=== PATIENT | female | born 1985 | race Caucasian/White ===

== ENCOUNTER 2017-07-20 19:06 | Emergency (ER) | payer OTHER ==
[~2017-07-20] VITALS: Ht 149.9 cm; Wt 54.4 kg
[~2017-07-20 19:06] MED LIST: CLARITIN10 MG PO; KEFLEX500 MG PO; LIORESAL 10 MG10 MG PO; TRAMADOL 50 MG50 MG PO
[2017-07-20] MEDS ORDERED: ACCUNEB SO1.25 MG/1 INH (19:24)
[2017-07-20] MEDS ORDERED: NAPROSYN500 MG PO (20:52)
[2017-07-20] MEDS ORDERED: HYDROCODONE-AP1 EAC6 PO (20:52)
[2017-07-20 21:51] VITALS: BP 102/62
== END 2017-07-20 21:52 | disposition home or self-care (01) ==
LOC: M.ERS 19:06
DX: M25.562 Pain in left knee (principal); R51 Headache; J45.909 Unspecified asthma, uncomplicated; Z88.8 Allergy status to other drugs, medicaments and biological substances; V49.9XXA Car occupant (driver) (passenger) injured in unspecified traffic accident, initial encounter; Y93.89 Activity, other specified; Y92.89 Other specified places as the place of occurrence of the external cause; Y99.8 Other external cause status

== ENCOUNTER 2017-07-25 15:24 | Emergency (ER) | payer OTHER ==
[~2017-07-25] VITALS: Ht 149.9 cm; Wt 54.4 kg
[~2017-07-25 15:24] MED LIST changes: +ACCUNEB SO1.25 MG/1 INH; +HYDROCODONE-AP1 EAC6 PO; +NAPROSYN500 MG PO
[2017-07-25 17:47] VITALS: BP 117/86
== END 2017-07-25 17:49 | disposition home or self-care (01) ==
LOC: M.ERS 15:24
DX: S80.12XD Contusion of left lower leg, subsequent encounter (principal); J45.909 Unspecified asthma, uncomplicated; Z88.8 Allergy status to other drugs, medicaments and biological substances; X58.XXXD Exposure to other specified factors, subsequent encounter

== ENCOUNTER 2017-12-24 18:36 | Emergency (ER) | payer OTHER ==
[~2017-12-24] VITALS: Ht 149.9 cm; Wt 54.4 kg
[2017-12-24] MEDS ORDERED: XYZBAC TABLET1 EACH PO (18:48)
[2017-12-24] MEDS ORDERED: TRUVADA1 EAC1 PO (19:24)
[2017-12-24] MEDS ORDERED: ISENTRESS400 MG PO (19:24)
[2017-12-24 19:25] LABS: ABSOLUTE BASOPHILS 0.1 thou/uL (0.0-0.2); ABSOLUTE EOSINOPHILS 0.2 thou/uL (0.0-0.7); ABSOLUTE LYMPHOCYTES 2.1 thou/uL (0.8-5.3); ABSOLUTE MONOCYTES 0.4 thou/uL (0.0-1.2); ABSOLUTE NEUTROPHILS 2.8 thou/uL (1.6-8.1); BASOPHILS 1.2 %; HEMATOCRIT 38.2 % (37.0-47.0); HEMOGLOBIN 13.3 gm/dL (12.0-15.0); LYMPHOCYTES 38.3 %; MCH 29.5 pg (26.0-34.0); MCHC 34.7 g/dL (28.0-37.0); MCV 84.8 fL (80.0-100.0); MPV 8.2 fl. (7.2-11.1); NUCLEATED RBCS 0 /100WBC; PLATELET COUNT* 218 thou/uL (150-400); POLYS 50.5 %; RDW-CV 13.2 % (10.5-14.5); WBC 5.5 thou/uL (4.0-11.0)
[2017-12-24 19:31] LABS: CALCIUM 8.9 mg/dL (8.5-10.1); CREATININE 0.6 mg/dL (0.6-1.3); POTASSIUM 3.6 mmol/L (3.5-5.1)
[2017-12-24 19:36] LABS: ALBUMIN 4.4 g/dL (3.4-5.0); TOTAL BILIRUBIN 0.4 mg/dL (<0.1-1.0)
[2017-12-24 20:11] VITALS: BP 118/71
[2017-12-25 16:09] LABS: HEPATITIS B SURFACE AG Negative (Negative)
== END 2017-12-24 20:11 | disposition home or self-care (01) ==
LOC: M.ERS 18:36
PROVIDERS: Nurse Practitioner Family
DX: S61.032A Puncture wound without foreign body of left thumb without damage to nail, initial encounter (principal); J45.909 Unspecified asthma, uncomplicated; Z98.890 Other specified postprocedural states; Z91.041 Radiographic dye allergy status; Z88.8 Allergy status to other drugs, medicaments and biological substances; W46.0XXA Contact with hypodermic needle, initial encounter; Y93.89 Activity, other specified; Y92.89 Other specified places as the place of occurrence of the external cause; Y99.8 Other external cause status

== ENCOUNTER 2018-07-10 13:33 | Emergency (ER) | payer OTHER ==
[~2018-07-10] VITALS: Ht 149.9 cm; Wt 54.4 kg
[~2018-07-10 13:33] MED LIST changes: +ISENTRESS400 MG PO; +TRUVADA1 EAC1 PO; +XYZBAC TABLET1 EACH PO
[2018-07-10] MEDS ORDERED: MUCINEX600 MG PO (13:47)
[2018-07-10] MEDS ORDERED: IBUPROFEN 200200 M1 PO (13:47)
[2018-07-10] MEDS ORDERED: OSELB75 PO (13:47)
[2018-07-10] MEDS ORDERED: TESSALON PERLE100 MG PO (13:47)
[2018-07-10 14:09] VITALS: BP 118/81
== END 2018-07-10 14:09 | disposition home or self-care (01) ==
LOC: M.ERS 13:33
DX: J11.1 Influenza due to unidentified influenza virus with other respiratory manifestations (principal); J45.909 Unspecified asthma, uncomplicated; Z98.890 Other specified postprocedural states; Z91.041 Radiographic dye allergy status; Z88.6 Allergy status to analgesic agent; Z88.8 Allergy status to other drugs, medicaments and biological substances

== ENCOUNTER 2018-07-12 08:45 | Inpatient (IN) | payer OTHER ==
[2018-07-12] VITALS (19 sets, daily range): BP systolic 83–117; BP diastolic 48–68
[~2018-07-12] VITALS: Ht 149.9 cm; Wt 63.0 kg
[~2018-07-12 08:45] MED LIST changes: +IBUPROFEN 200200 M1 PO; +MUCINEX600 MG PO; +OSELB75 PO; +TESSALON PERLE100 MG PO
[2018-07-12] MEDS ORDERED: CENTRUM SILVER1 EAC4 PO (08:58)
[2018-07-12] MEDS ORDERED: 24HR ALLERGY REL5 MG PO (08:58)
[2018-07-12] MEDS ORDERED: DIGESTIVE PROB250 MG PO (08:59)
[2018-07-12 09:12] LABS: ABSOLUTE LYMPHOCYTES 0.5 thou/uL (0.8-5.3); ABSOLUTE MONOCYTES 0.3 thou/uL (0.0-1.2); ABSOLUTE NEUTROPHILS 4.1 thou/uL (1.6-8.1); BASOPHILS 0.6 %; HEMATOCRIT 37.1 % (37.0-47.0); HEMOGLOBIN 12.9 gm/dL (12.0-15.0); LYMPHOCYTES 9.6 %; MCH 29.7 pg (26.0-34.0); MCHC 34.9 g/dL (28.0-37.0); MCV 85.1 fL (80.0-100.0); MPV 7.8 fl. (7.2-11.1); NUCLEATED RBCS 0 /100WBC; PLATELET COUNT* 184 thou/uL (150-400); POLYS 83.8 %; RBC 4.36 mil/uL (4.20-5.00); RDW-CV 12.9 % (10.5-14.5); WBC 4.9 thou/uL (4.0-11.0)
[2018-07-12 09:17] LABS: BE -3.4 mmol/L (-2 to +3); PCO2 31.3 mmHg (35.0-45.0); PO2 67.2 mmHg (75.0-100.0); pH 7.424 (7.340-7.450)
[2018-07-12 09:29] LABS: CREATININE 1.1 mg/dL (0.6-1.3); POTASSIUM 3.2 mmol/L (3.5-5.1)
[2018-07-12 09:34] LABS: ALBUMIN 3.7 g/dL (3.4-5.0); TOTAL BILIRUBIN 0.3 mg/dL (<0.1-1.0); TOTAL PROTEIN 8.4 g/dL (6.4-8.2)
[2018-07-12 10:03] LABS: URINE BLOOD 1+ (Negative); URINE CLARITY CLEAR; URINE COLOR DARK YELLOW; URINE GLUCOSE-RANDOM NEGATIVE (Negative); URINE LEUKOCYTES-REFLEX NEGATIVE (Negative); URINE NITRITE-REFLEX NEGATIVE (Negative); URINE PROTEIN 2+ (Negative); URINE SPECIFIC GRAVITY >= 1.030 (1.005-1.030); URINE UROBILINOGEN 0.2 E.U./dl (0.2-1.0)
[2018-07-12 10:12] LABS: URINE BILIRUBIN 2+ (Negative); URINE KETONES 3+ (Negative)
[2018-07-12 10:14] LABS: ICTOTEST (BILI CONFIRMATORY) Negative (Negative)
[2018-07-12 10:34] LABS: SQUAMOUS 4-10 Moderate /LPF (0-3); URINE WBC-REFLEX 6-15 Few /HPF (0-5); WBC CLUMPS Few (None Seen)
[2018-07-12 10:35] LABS: URINE RBC 0-2 Rare /HPF (0-2)
[2018-07-12 10:36] LABS: HYALINE CASTS 0-3 Few /LPF (None Seen); MUCUS >6 Heavy strn/LPF (None Seen)
[2018-07-12 10:39] LABS: CRYSTALS None Seen /LPF (None Seen); TRANSITIONAL EPITHEL CELL 0-3 Few /LPF (None Seen); WBC CASTS 0-3 /LPF
[2018-07-12 13:32] LABS: HCO3 19.7 mmol/L (22.0-26.0); PCO2 VENOUS 44.3 mmHg (41.0-51.0); PO2 VENOUS < 39.5 mmHg (35.0-45.0)
--- NOTE | 2018-07-12 15:40 | EKG ---
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
[2018-07-13] VITALS (19 sets, daily range): BP systolic 81–110; BP diastolic 52–71
[2018-07-13 04:15] LABS: HEMATOCRIT 31.3 % (37.0-47.0); MCH 29.5 pg (26.0-34.0); MCHC 34.4 g/dL (28.0-37.0); MCV 85.8 fL (80.0-100.0); MPV 7.8 fl. (7.2-11.1); RBC 3.65 mil/uL (4.20-5.00); RDW-CV 13.2 % (10.5-14.5); WBC 2.5 thou/uL (4.0-11.0)
[2018-07-13 04:37] LABS: ALBUMIN 2.6 g/dL (3.4-5.0); CREATININE 0.9 mg/dL (0.6-1.3); MAGNESIUM 1.7 mg/dL (1.8-2.4); POTASSIUM 3.9 mmol/L (3.5-5.1); TOTAL BILIRUBIN 0.1 mg/dL (<0.1-1.0); TOTAL PROTEIN 6.4 g/dL (6.4-8.2)
[2018-07-13 04:46] LABS: HEMOGLOBIN 10.8 gm/dL (12.0-15.0)
--- NOTE | 2018-07-13 06:30 | NUR ---
PATIENT PROGRESSING TOWARDS GOALS. NO ACUTE HEMODYNAMIC CHANGES. PT BP MAP REMAINED >65. REMAINS OFF PRESSORS. REPLACING ELECTROLYTES. PT STATED "I FEEL SO MUCH BETTER, I CAN BREATH BETTER". SHE COMPLAINED OF MILD CHEST DISCOMFORT HAD A COUPLE COUGHING SPASMS MEDICATION GIVEN AND SUBSIDED. PT CONTINUES WITH CVP RUNNING WNL. GOES TO BEDSIDE COMMODE HAS DIARRHEA. DENIES NAUSEA. PT WAS ABLE TO GET FIVE HOURS OF SLEEP. NO CURRENT CONCERNS AT THIS TIME. WILL CONTINUE TO MONITOR.
--- NOTE | 2018-07-13 12:46 | CON ---
[address] [address] CONSULTATION Name: RACHAEL VAUGHAN Room: [address] IN M.R.#: [id number] Admission: 07/12/18 Attend Phys: Jayce Barksdale MD Discharge: Date of : 83 Report #: [id number] THIS REPORT FOR: //name// CC: FAM unknown Jayce Barksdale [facility] DATE OF SERVICE: 07/12/2018 INFECTIOUS DISEASE CONSULTATION ATTENDING PHYSICIAN: Jayce Barksdale MD REASON FOR EVALUATION: Influenza B complicated by secondary bacterial pneumonitis. HISTORY OF PRESENT ILLNESS: Chart reviewed, patient examined. This is a 32-year-old, without significant medical history, who was noted to be ill roughly a week ago and developed febrile illness, was diagnosed with influenza B, was treated with oseltamivir and over the course of the last 24-48 hours prior to her admission, had worsening fevers, increasing cough and nonproductive progressive dyspnea. She was evaluated in the Emergency Room on 07/10/2018, felt to have ongoing issues with the influenza; however, returned at the recommendation of her primary care. Chest x-ray at this time showed right perihilar infiltrate, so was borderline hypoxemic. Hemodynamics were somewhat labile. She has received 4 liters of fluid. The pressure is still in the 90 systolic. She is not encephalopathic. She has noted intractable nausea with repeated emesis and no p.o. intake including her medicines for the last 24 hours. She is empirically started on therapy with vancomycin, azithromycin and ceftriaxone. ALLERGIES: IODINE, DIPHENHYDRAMINE. MEDICATIONS: Include azithromycin, vancomycin, methylprednisolone, pantoprazole. PAST MEDICAL HISTORY: History of asthma, 3 C-sections. SOCIAL HISTORY: Nonsmoker, no ethanol, no illicit drug use. FAMILY HISTORY: Noncontributory. REVIEW OF SYSTEMS: A 10-point review of system otherwise unremarkable except as noted in history of present illness. PHYSICAL EXAMINATION: [place] [id number] CONSULTATION Name: RACHAEL VAUGHAN Room: [address] IN [facility]#: [id number] Admission: 07/12/18 Attend Phys: Jayce Barksdale MD Discharge: Date of : 83 Report #: [id number] GENERAL: She appears ill. Borderline toxic. She is generally lucid. VITAL SIGNS: T-max 104, pulse 78, respirations 19, blood pressure 95/55. SKIN: Warm, dry. HEENT: Extraocular muscles intact. Lips are dry. NECK: Supple. LUNGS: Few scattered coarse breath sounds on the right. She is borderline tachypneic. HEART: Regular. I do not appreciate any murmur. ABDOMEN: Soft, nontender, nondistended. EXTREMITIES: No cyanosis. GENITOURINARY: Deferred. RECTAL: Deferred. LABORATORY DATA: CBC: White count of 4.9, H and H 12.9 and 37.1, platelets 184. ABGs: pH 7.424, pCO2 of 31.3 and pO2 of 67.2. Electrolytes: Sodium 139, potassium 3.2, chloride 100, bicarbonate is 24, anion gap of 15, BUN and creatinine 19 and 1.1, glucose of 86. LFTs unremarkable. Albumin of 3.7, total protein of 8.4. Chest x-ray, right perihilar infiltrate, right mid lung and basilar infiltrate and atelectasis. Lactic acid 0.7. Urinalysis, few wbc's clumps, white cells 6-15. ASSESSMENT: Influenza B secondary to complication of bacterial pneumonitis, also may well have a complicated urinary tract infection. We will continue combination therapy. For the parenteral regimen, we will adjust treatment per combination. At this point, she is somewhat labile. Continue fluid resuscitation as well as supplemental oxygen as required. Symptomatic treatment. <ELECTRONICALLY SIGNED> By: Neri Grissom MD 07/13/18 1246 1714 [id number] Grissom MD /nt
--- NOTE | 2018-07-13 17:56 | NUR ---
PT CARE ASSUMED AFTER REPORT. ASSESSMENTS COMPLETE. SR ON MONITOR. IVF INFUSING. PT UP WITH STAND BY ASSIST TO BSC. PRN PAIN MEDICATION GIVEN PER ORDERS. DROPLET PRECAUTIONS IN PLACE. PROGRESSING TOWARDS GOALS.
[2018-07-14] VITALS (12 sets, daily range): BP systolic 95–115; BP diastolic 60–79
--- NOTE | 2018-07-14 06:46 | NUR ---
VSS, SEE ASSESSMENT. PT DENIES PAIN EXCEPT DURING COUGHING, NO PAIN WHEN NOT COUGHING. DROPLET PRECAUTIONS MAINTAINED. PT SLEPT WELL AFTER PRN MELATONIN. CALL LIGHT WITHIN REACH.
[2018-07-14 08:32] LABS: CALCIUM 7.3 mg/dL (8.5-10.1); CREATININE 0.6 mg/dL (0.6-1.3); MAGNESIUM 2.2 mg/dL (1.8-2.4); POTASSIUM 3.7 mmol/L (3.5-5.1)
--- NOTE | 2018-07-14 12:44 | NUR ---
PATIENT REMAINS A&O X 4, PLEASANT AND COOPERATIVE WITH CARES. DENIES PAIN. PATIENT HAS NON-PRODUCTIVE COUGH NOTED, SOA NOTED WITH EXCERTION. O2@2L PER NC UP TO COMMODE X 2, LOOSE BM NOTED, ADEQUATE UO. PATIENT TO TRANSFER TO ROOM 211. REPORT GIVEN TO GUSTAVO DAUGHERTY . NO FUTHER CONCERNS AT THIS TIME. WILL CONTINUE TO MONITOR AND CARE PER PLAN OF CARE.
--- NOTE | 2018-07-14 13:25 | NUR ---
icu tx to rm 211 telephone report given patient to via wc good condition personal belongings moved with patient oriented to rm and call light denies pain
--- NOTE | 2018-07-15 04:17 | NUR ---
ASSUMED PT CARE AT 191. NURSING ASSESSMENT COMPLETED AT START OF SHIFT. PT MED SURG STATUS. CONTINUES ON DROPLET ISO PRECAUTIONS. PRN PAIN MEDICATION ADMINISTERED X1 THIS SHIFT FOR C/O GENERALIZED PAIN. SEE EMAR FOR DOCUMENTATION HOURLY ROUNDING COMPLETED, FALL PRECAUTIONS IN PLACE.
[2018-07-15 05:35] LABS: HEMATOCRIT 28.2 % (37.0-47.0); HEMOGLOBIN 9.9 gm/dL (12.0-15.0); MCV 85.7 fL (80.0-100.0); MPV 8.4 fl. (7.2-11.1); RBC 3.29 mil/uL (4.20-5.00); RDW-CV 13.4 % (10.5-14.5); WBC 7.2 thou/uL (4.0-11.0)
[2018-07-15 06:00] LABS: ALBUMIN 2.6 g/dL (3.4-5.0); CALCIUM 7.6 mg/dL (8.5-10.1); CREATININE 0.7 mg/dL (0.6-1.3); MAGNESIUM 2.5 mg/dL (1.8-2.4); POTASSIUM 3.5 mmol/L (3.5-5.1); TOTAL BILIRUBIN 0.2 mg/dL (<0.1-1.0); TOTAL PROTEIN 5.2 g/dL (6.4-8.2)
[2018-07-15 08:00] VITALS: BP 127/83
[2018-07-15 16:00] VITALS: BP 114/82
--- NOTE | 2018-07-15 18:07 | NUR ---
PT UP IN ROOM WITH STEADY GAIT. OCASSIONAL COUGH BUT IMPROVED THIS EVENING. VOIDING WELL AFTER LASIX. TOLERATING PO WELL. REMAINS ON O2 @2L NC
[2018-07-15 20:00] VITALS: BP 103/64
[2018-07-16] VITALS: BP 108/62
--- NOTE | 2018-07-16 04:27 | NUR ---
ASSUMED PT CARE AT 1915. PT MED SURG STATUS. VOICED NO CONCERNS THIS SHIFT. CONTINUES ON 1L O2 VIA NC THIS SHIFT. HOURLY ROUNDING COMPLETED, CALL LIGHT REMAINS WITHIN REACH. PT SLOWLY PROGRESSING TOWARDS GOALS.
[2018-07-16 05:36] LABS: HEMATOCRIT 28.7 % (37.0-47.0); HEMOGLOBIN 10.3 gm/dL (12.0-15.0); MCH 30.1 pg (26.0-34.0); MCHC 35.8 g/dL (28.0-37.0); MCV 83.9 fL (80.0-100.0); MPV 8.3 fl. (7.2-11.1); RBC 3.42 mil/uL (4.20-5.00); RDW-CV 13.3 % (10.5-14.5); WBC 5.7 thou/uL (4.0-11.0)
[2018-07-16 05:48] LABS: CALCIUM 7.8 mg/dL (8.5-10.1); CREATININE 0.7 mg/dL (0.6-1.3); MAGNESIUM 2.3 mg/dL (1.8-2.4); POTASSIUM 3.1 mmol/L (3.5-5.1)
[2018-07-16 08:00] VITALS: BP 130/88
[2018-07-16 15:50] VITALS: BP 124/84
--- NOTE | 2018-07-16 18:05 | NUR ---
PT CARE ASSUMED AFTER REPORT. ASSESSMENT COMPLETE. UP AD LUIS ANGEL WITH STEADY GAIT. O2 1L NC. PT REPORTS THAT SHE CONTINUES TO FEEL WEAK. REPORTS GEMERALIZED ACHING. SLOW TO PROGRESS TOWARDS GOALS.
[2018-07-16 20:00] VITALS: BP 113/75
[2018-07-17] VITALS: BP 115/70
--- NOTE | 2018-07-17 04:56 | NUR ---
ASSUMED PT CARE AT 1930. NURSING ASSESSMENT COMPLETED AT START OF SHIFT. PT VOICED NO CONCERNS THIS SHIFT. PT ON 0.5 L O2 AT START OF SHIFT. PT EAGER TO BE DISCHARGED THIS AM. HOURLY ROUNDING COMPLETED. CALL LIGHT WITHIN REACH.
[2018-07-17 05:29] LABS: HEMATOCRIT 29.9 % (37.0-47.0); HEMOGLOBIN 10.4 gm/dL (12.0-15.0); MCH 29.7 pg (26.0-34.0); MCHC 34.8 g/dL (28.0-37.0); MCV 85.3 fL (80.0-100.0); RBC 3.5 mil/uL (4.20-5.00); RDW-CV 13.4 % (10.5-14.5); WBC 5.9 thou/uL (4.0-11.0)
[2018-07-17 05:53] LABS: CREATININE 0.6 mg/dL (0.6-1.3); POTASSIUM 4.4 mmol/L (3.5-5.1)
[2018-07-17 08:30] VITALS: BP 120/69
--- NOTE | 2018-07-17 09:00 | NUR ---
PATIENT AXOX4, ASSESSMENT CHARTED. PATIENT HAS NO COMPLAINTS OF NAUSEA. SOME SLIGHT PAIN IN RIB CAGE AREA FROM COUGHING BUT DOES NOT REQUIRE MEDICATION FOR THIS PAIN. SOME SHORTNESS OF BREATH AFTER COUGHING FIT BUT REMAINS ABOVE 92% SAT DURING AND AFTER COUGHING. WEANED OFF O2. GOAL IS TO INCREASE ACTIVITY WITH MINIMAL SHORTNESS OF AIR, REDUCE SWELLING IN LOWER EXTREMITIES WITH INCREASE OF ACTIVITY AND POSSIBLY D/C TO HOME TODAY. BED IN LOWEST POSITION, CALL LIGHT IN REACH.
[2018-07-17 12:00] VITALS: BP 115/74
--- NOTE | 2018-07-17 15:37 | NUR ---
Pt is A&O. Resides at home with her and kids. Independent and active, continues to work outside of the home. No DME. No hx of HH or SNF. Goal is home at dc. Following for dc needs.
[2018-07-17 16:00] VITALS: BP 103/69
--- NOTE | 2018-07-17 18:02 | NUR ---
PATIENT TRANSFERRED UP FROM ROOM 211 TO ROOM 309. REPORT RECEIVED FROM GUSTAVO BEASLEY. PATIENT UP AND AMBULATING AROUND ROOM WITHOUT DIFFICULTY. NO COMPLAINTS OF PAIN. IV SL. PATIENT SITTING UP IN CHAIR COLORING. WILL CONTINUE TO MONITOR.
[2018-07-17 21:20] VITALS: BP 118/68
--- NOTE | 2018-07-17 21:57 | NUR ---
INITAL ASSESMENT COMPLETED AT 1930. PT RESTING IN BED IN HIGH FOWLERS POSITION. PT REPORTS BACK AND RIB PAIN WHEN COUGHING. PT GIVEN PRN IBUPROPHEN WITH HS MEDS. PTS O2 SAT ON ROOM AIR 94%. TREATMENTS, TESTS AND LAB VALUES EXPLAINED TO PT. PT INSTRUCTED TO CALL FOR ASSISTANCE. CALL LIGHT IN REACH, PT USING APPROPRIATELY.
[2018-07-18 05:00] VITALS: BP 127/66
--- NOTE | 2018-07-18 06:34 | NUR ---
PT NOT PROGRESSING TOWARD GOALS. PT BREATHING SHALLOW BREATHS. LUNG SOUNDS TIGHT, DIMINISHED WITH COARSE CRACKLES. PT UNABLE TO COUGH UP PHLEGM. ECIEVED ORDER TO START PO HUMABID. PT GIVEN PRN IBUPROFEN AND IV TORADOL FOR RELIEF OF PAIN IN BACK, RIBS AND CHEST. PT AWARE OF PRN NORCO BUT REFUSES TO TAKE WHEN OFFERED FOR PAIN.
[2018-07-18 07:50] VITALS: BP 133/83
[2018-07-18] MEDS ORDERED: AMOXICILLIN 50500 MG PO (11:17)
[2018-07-18] MEDS ORDERED: MUCINEX600 MG PO (14:47)
[2018-07-18] MEDS ORDERED: SINGULAIR 10 MG10 M1 PO (14:47)
[2018-07-18] MEDS ORDERED: VENTOLIN HFA 1818 GM INH (14:48)
[2018-07-18] MEDS ORDERED: ADVAIR 500-501 EACH INH (14:48)
[2018-07-18] MEDS ORDERED: PREDNISONE 10 M10 MG PO (14:49)
[2018-07-18] MEDS ORDERED: PROTONIX40 M1 PO (14:50)
[2018-07-18 15:14] VITALS: BP 133/83
--- NOTE | 2018-07-18 16:56 | NUR ---
PATIENT DISCHARGED TO HOME AT THIS TIME. VERBALIZED UNDERSTANDING OF PAPERWORK AND SCRIPTS. IV DC'D. PATIENT AMBULATED IN HALLS WITH THERAPY, STEADY GAIT NOTED. PATIENT TAKEN OUT VIA WHEELCHAIR WITH ALL BELONGINGS.
== END 2018-07-18 17:02 | disposition home or self-care (01) | DRG 871 ==
LOC: M.ERS 08:45 → M.ICU 09:35 → M.TBA-ER 09:35 → M.ICU 11:18 → M.2W 07-14 13:15 → M.3W 07-17 18:00
PROVIDERS: Family Medicine; Personal Emergency Response Attendant; ADMIT Internal Medicine
DX: A41.9 Sepsis, unspecified organism (principal); J69.0 Pneumonitis due to inhalation of food and vomit; J96.01 Acute respiratory failure with hypoxia; J10.08 Influenza due to other identified influenza virus with other specified pneumonia; J15.212 Pneumonia due to Methicillin resistant Staphylococcus aureus; N39.0 Urinary tract infection, site not specified; J45.901 Unspecified asthma with (acute) exacerbation; E86.0 Dehydration; I95.9 Hypotension, unspecified; E86.9 Volume depletion, unspecified; E87.6 Hypokalemia; K59.00 Constipation, unspecified; R65.20 Severe sepsis without septic shock; Z98.891 History of uterine scar from previous surgery; Z79.899 Other long term (current) drug therapy; Z88.8 Allergy status to other drugs, medicaments and biological substances; Z91.041 Radiographic dye allergy status

== ENCOUNTER 2019-05-09 04:43 | Emergency (ER) | payer OTHER ==
[~2019-05-09] VITALS: Ht 149.9 cm; Wt 56.7 kg
[~2019-05-09 04:43] MED LIST changes: +24HR ALLERGY REL5 MG PO; +ADVAIR 500-501 EACH INH; +AMOXICILLIN 50500 MG PO; +CENTRUM SILVER1 EAC4 PO; +DIGESTIVE PROB250 MG PO; +PREDNISONE 10 M10 MG PO; +PROTONIX40 M1 PO; +SINGULAIR 10 MG10 M1 PO; +VENTOLIN HFA 1818 GM INH
[2019-05-09] MEDS ORDERED: EFFEXOR XR75 MG PO (04:57)
[2019-05-09] MEDS ORDERED: B COMPLEX1 EACH PO (04:57)
[2019-05-09] MEDS ORDERED: FLEXERIL PO (06:15)
[2019-05-09] MEDS ORDERED: ZOFRAN ODT4 MG PO (06:15)
[2019-05-09] MEDS ORDERED: PERCOCET 5-3251 EACH PO (06:15)
[2019-05-09 06:32] VITALS: BP 118/70
== END 2019-05-09 06:32 | disposition home or self-care (01) ==
LOC: M.ERS 04:43
DX: M25.552 Pain in left hip (principal); M54.5 Low back pain; J45.909 Unspecified asthma, uncomplicated; Z98.890 Other specified postprocedural states; Z88.8 Allergy status to other drugs, medicaments and biological substances

== ENCOUNTER 2019-09-06 13:25 | Emergency (ER) | payer OTHER ==
[~2019-09-06] VITALS: Ht 149.9 cm; Wt 59.0 kg
[~2019-09-06 13:25] MED LIST changes: +B COMPLEX1 EACH PO; +EFFEXOR XR75 MG PO; +FLEXERIL PO; +PERCOCET 5-3251 EACH PO; +ZOFRAN ODT4 MG PO
[2019-09-06] MEDS ORDERED: LYRICA 75 MG CA75 MG PO (13:57)
[2019-09-06] MEDS ORDERED: FISH OIL 1,0001 EAC9 PO (13:58)
[2019-09-06 14:01] LABS: ABSOLUTE EOSINOPHILS 0.5 thou/uL (0.0-0.7); ABSOLUTE LYMPHOCYTES 1.6 thou/uL (0.8-5.3); ABSOLUTE MONOCYTES 0.4 thou/uL (0.0-1.2); ABSOLUTE NEUTROPHILS 3.6 thou/uL (1.6-8.1); BASOPHILS 0.7 %; EOSINOPHILS 7.8 %; HEMATOCRIT 37.6 % (37.0-47.0); HEMOGLOBIN 13.1 gm/dL (12.0-15.0); LYMPHOCYTES 25.9 %; MCH 29.9 pg (26.0-34.0); MCHC 34.8 g/dL (28.0-37.0); MCV 86.2 fL (80.0-100.0); MONOCYTES 6.6 %; MPV 8.3 fl. (7.2-11.1); NUCLEATED RBCS 0 /100WBC; PLATELET COUNT* 199 thou/uL (150-400); RBC 4.36 mil/uL (4.20-5.00); RDW-CV 12.7 % (10.5-14.5); WBC 6.2 thou/uL (4.0-11.0)
[2019-09-06 14:01] LABS: URINE BILIRUBIN NEGATIVE (Negative); URINE BLOOD NEGATIVE (Negative); URINE CLARITY CLEAR; URINE COLOR YELLOW; URINE GLUCOSE-RANDOM NEGATIVE (Negative); URINE KETONES NEGATIVE (Negative); URINE LEUKOCYTES-REFLEX NEGATIVE (Negative); URINE NITRITE-REFLEX NEGATIVE (Negative); URINE PROTEIN NEGATIVE (Negative); URINE SPECIFIC GRAVITY <= 1.005 (1.005-1.030); URINE UROBILINOGEN 0.2 E.U./dl (0.2-1.0)
[2019-09-06 14:11] LABS: APTT 28.4 Seconds (25.0-31.3); PROTIME 10.6 Seconds (9.20-11.50)
[2019-09-06 14:17] LABS: CALCIUM 6.3 mg/dL (8.5-10.1); CREATININE 0.6 mg/dL (0.6-1.3); POTASSIUM 3.4 mmol/L (3.5-5.1)
[2019-09-06 14:32] LABS: ALBUMIN 3.1 g/dL (3.4-5.0); TOTAL BILIRUBIN 0.2 mg/dL (<0.1-1.0); TOTAL PROTEIN 5.2 g/dL (6.4-8.2)
[2019-09-06 16:33] VITALS: BP 111/67
--- NOTE | 2019-09-14 14:58 | EKG ---
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: [facility] : 1985 Requested By: Isaiah Berg Order Number: [id number] MD: Stanley Mcelroy Measurements Intervals [place]icity Rate: 79 P: 69 [place]: 140 QRS: 62 QRSD: 85 T: 31 QT: 365 QTc: 419 Interpretive Statements Sinus rhythm Baseline wander in lead(s) V1 Compared to ECG 07/12/2018 10:48:51 Sinus tachycardia no longer present T-wave abnormality no longer present Electronically Signed On 09-06-2019 16:01:27 AIR POLLUTION ENGINEER by Stanley Mcelroy [email or web address] <ELECTRONICALLY SIGNED> By: Stanley Mcelroy MD, FACC 09/06/19 1601 1454 1454 Stanley Mcelroy MD, FAC /EPI
== END 2019-09-06 16:34 | disposition home or self-care (01) ==
LOC: M.ERS 13:25
PROVIDERS: Emergency Medicine Emergency Medical Services
DX: F07.81 Postconcussional syndrome (principal); R55 Syncope and collapse; J45.909 Unspecified asthma, uncomplicated; Z88.6 Allergy status to analgesic agent; Z91.041 Radiographic dye allergy status; Z88.8 Allergy status to other drugs, medicaments and biological substances; Z98.890 Other specified postprocedural states

== ENCOUNTER 2019-11-22 21:01 | Emergency (ER) | payer OTHER ==
[~2019-11-22] VITALS: Ht 149.9 cm; Wt 61.2 kg
[~2019-11-22 21:01] MED LIST changes: +FISH OIL 1,0001 EAC9 PO; +LYRICA 75 MG CA75 MG PO
[2019-11-22] MEDS ORDERED: TRAZODONE 150150 M1 PO (21:18)
[2019-11-22] MEDS ORDERED: MECLIZINE HCL25 M1 PO (21:18)
[2019-11-22] MEDS ORDERED: REGLAN 5 MG TAB5 MG PO (21:19)
[2019-11-22] MEDS ORDERED: PROPRANOLOL 4040 M1 PO (21:20)
[2019-11-22] MEDS ORDERED: FLEXERIL PO (21:22)
[2019-11-22] MEDS ORDERED: ALLEGRA-D 24 H1 EACH PO (21:23)
[2019-11-22 21:56] LABS: ABSOLUTE BASOPHILS 0.1 thou/uL (0.0-0.2); ABSOLUTE EOSINOPHILS 0.3 thou/uL (0.0-0.7); ABSOLUTE LYMPHOCYTES 2.1 thou/uL (0.8-5.3); ABSOLUTE MONOCYTES 0.6 thou/uL (0.0-1.2); ABSOLUTE NEUTROPHILS 3.5 thou/uL (1.6-8.1); HEMATOCRIT 34.2 % (37.0-47.0); HEMOGLOBIN 12.3 gm/dL (12.0-15.0); LYMPHOCYTES 31.5 %; MCH 31.5 pg (26.0-34.0); MCHC 35.9 g/dL (28.0-37.0); MCV 87.8 fL (80.0-100.0); MONOCYTES 8.7 %; MPV 9.5 fl. (7.2-11.1); NUCLEATED RBCS 0 /100WBC; PLATELET COUNT* 183 thou/uL (150-400); POLYS 53.8 %; RDW-CV 13.2 % (10.5-14.5); WBC 6.5 thou/uL (4.0-11.0)
[2019-11-22 22:01] LABS: CALCIUM 8.5 mg/dL (8.5-10.1); POTASSIUM 3.5 mmol/L (3.5-5.1)
[2019-11-22 22:04] LABS: URINE BLOOD NEGATIVE (Negative); URINE CLARITY CLEAR; URINE COLOR YELLOW; URINE GLUCOSE-RANDOM NEGATIVE (Negative); URINE KETONES TRACE (Negative); URINE LEUKOCYTES-REFLEX NEGATIVE (Negative); URINE NITRITE-REFLEX NEGATIVE (Negative); URINE PROTEIN NEGATIVE (Negative); URINE SPECIFIC GRAVITY 1.025 (1.005-1.030); URINE UROBILINOGEN 0.2 E.U./dl (0.2-1.0)
[2019-11-22 22:06] LABS: ALBUMIN 4.2 g/dL (3.4-5.0); TOTAL BILIRUBIN 0.4 mg/dL (<0.1-1.0); TOTAL PROTEIN 7.3 g/dL (6.4-8.2)
[2019-11-22 22:06] LABS: ICTOTEST (BILI CONFIRMATORY) Negative (Negative); URINE BILIRUBIN 1+ (Negative)
[2019-11-22 23:59] VITALS: BP 92/58
== END 2019-11-22 23:59 | disposition home or self-care (01) ==
LOC: M.ERS 21:01
PROVIDERS: Personal Emergency Response Attendant
DX: R55 Syncope and collapse (principal); J45.909 Unspecified asthma, uncomplicated; M79.7 Fibromyalgia; Z98.51 Tubal ligation status; Z98.890 Other specified postprocedural states; Z88.8 Allergy status to other drugs, medicaments and biological substances

== ENCOUNTER → 2020-12-26 | Outpatient (CLI) | payer OTHER ==
[~2020-12-26] MED LIST changes: +ALLEGRA-D 24 H1 EACH PO; +MECLIZINE HCL25 M1 PO; +PROPRANOLOL 4040 M1 PO; +REGLAN 5 MG TAB5 MG PO; +TRAZODONE 150150 M1 PO
== END ==
LOC: M.CRD 11-14 15:31 → M.MRI 13:01
PROVIDERS: ATTEND Psychiatry & Neurology Neuromuscular Medicine
DX: R55 Syncope and collapse (principal); F41.9 Anxiety disorder, unspecified; M79.18 Myalgia, other site

== ENCOUNTER → 2020-12-29 | Outpatient (CLI) | payer OTHER ==
--- NOTE | ~2020-12-29 | EEG ---
[facility] [address] [place] [address] EEG STUDY REPORT Name: RACHAEL VAUGHAN Room: [facility].#: [id number] Admission: 12/29/20 Attend Phys: Rey Swain MD Discharge: Date of : 83 Report #: [id number] THIS REPORT FOR: cc: Ayah Escobar Samantha RNP Khosla, Parveen K. MD ~ DOC #: [id number] Rey Swain MD DATE OF SERVICE: 12/29/2020 This patient is being evaluated for the possibility of seizure. EEG was done by placing electrode by standard 10-20 system of electrode placement. Both referential and sequential montages were used for recording. Background activity in this patient's EEG is about 9 Hz and 30 microvolts. Most of this EEG was obtained when the patient was asleep and that is associated with bilateral slowing and vertex sharp waves. Artifact from twitching is present. IMPRESSION: Most of the EEG was obtained when the patient was asleep and that showed pretty significant slowing. The patient's EEG does appear to have twitching and reduced muscle artifact. I think it will be desirable to follow the plan on this patient, which was made where she get an evaluation by a labor and delivery nurse and then evaluation by an epileptologist. Thank you very much for this referral. Rey Swain MD PK/VIS By: 0922 [id number] Swain MD /carl
== END ==
LOC: M.CRD 14:00
PROVIDERS: ATTEND Psychiatry & Neurology Neuromuscular Medicine
DX: R55 Syncope and collapse (principal); F41.9 Anxiety disorder, unspecified; M79.18 Myalgia, other site

== ENCOUNTER → 2021-01-20 | Outpatient (CLI) | payer OTHER | LOC: M.ULTRA 15:00 | PROVIDERS: ATTEND Family Medicine | DX: N83.02 Follicular cyst of left ovary (principal); N83.01 Follicular cyst of right ovary; R10.30 Lower abdominal pain, unspecified; N93.9 Abnormal uterine and vaginal bleeding, unspecified; N94.89 Other specified conditions associated with female genital organs and menstrual cycle ==